=== PATIENT | male | born 1990 | race Caucasian/White ===

== ENCOUNTER 2017-04-07 10:29 | Emergency (ER) | payer BC ==
--- NOTE | 2017-04-07 11:17 | UC ---
Complaint Male HPI - HPI Summary HPI Summary: 27 y/o male presents to the urgent care c/o lower back pain, blood in his urine with frequency and hesitancy on urination since yesterday. Pt states blood in the urine has resolved. However he still feel mild mid and lower back pain, pain 3/10 w/o any radiation. Pt had nausea yesterday which resolve today. He has good appetite today. Pt denies abdominal pain, fever, SOB, chest pain, Hx of STD, penile discharge or penile pain. Pt has not taking anything to alleviate symptoms. - History of Current Complaint Chief Complaint: UCGU Stated Complaint: URINARY COMPLAINT Time Seen by Provider: 04/07/17 10:56 Hx Obtained From: Patient Onset/Duration: Gradual Onset, Lasting Days - 1 day, Still Present Timing: Constant, Lasting Days - 1 day Severity Initially: Moderate Severity Currently: Mild Pain Intensity: 3 Pain Scale Used: 0-10 Numeric Location: Flank - RT side Character: Constant Pressure Aggravating Factor(s): Voiding - frequency and hesistancy on urination Alleviating Factor(s): Nothing Associated Signs And Symptoms: Positive: Back Pain - mild on RT side, Hematuria , Appetite, Nausea - yesterday which resolved today. Negative: Fever, Blood in Stool, Rectal Pain, Vomiting(# Of Episodes =), Penile Swelling, Penile Discharge Prior STD Hx: no - Risk Factors Testicular Torsion: Negative - Allergies/Home Medications Allergies/Adverse Reactions: Allergies Allergy/AdvReac Type Severity Reaction Status Date / Time No Known Allergies Allergy Verified 04/07/17 10:54 PMH/Surg Hx/FS Hx/Imm Hx Previously Healthy: Yes Neurological History: Migraine - Surgical History Surgical History: None - Family History Known Family History: Positive: Hypertension, Diabetes - Social History Occupation: Employed Full-time Lives: With Family Alcohol Use: Occasionally Substance Use Type: Cocaine Substance Use Comment - Amount & Last Used: monthly- but not in several months. Smoking Status (MU): Light Every Day Tobacco Smoker Type: Cigarettes, eCigarettes Amount Used/How Often: occasional cigarette, daily e- cig. Review of Systems Constitutional: Negative Skin: Negative Eyes: Negative ENT: Negative Respiratory: Negative Cardiovascular: Negative Gastrointestinal: Nausea - yesterday Genitourinary: Dysuria, Hematuria, Frequency Motor: Negative Neurovascular: Negative Musculoskeletal: Other: - mid and lower back pain Neurological: Negative Psychological: Negative All Other Systems Reviewed And Are Negative: Yes Physical Exam Triage Information Reviewed: Yes Appearance: Well-Appearing, No Pain Distress, Well-Nourished, Obese Vital Signs: Initial Vital Signs Temp 98.8 F 04/07/17 10:55 Pulse 88 04/07/17 10:55 Resp 16 04/07/17 10:55 BP 132/105 04/07/17 10:55 Pulse Ox 98 04/07/17 10:55 Vital Signs Reviewed: Yes Eye Exam: Normal Eyes: Positive: Conjunctiva Clear - PERRLA, EOMI ENT Exam: Normal ENT: Positive: Normal ENT inspection, Hearing grossly normal, Pharynx normal, TMs normal Dental Exam: Normal Neck exam: Normal Respiratory Exam: Normal Respiratory: Positive: Chest non-tender, Lungs clear, Normal breath sounds, No respiratory distress Cardiovascular Exam: Normal Cardiovascular: Positive: RRR, No Murmur, Pulses Normal, Brisk Capillary Refill Abdominal Exam: Normal Abdomen Description: Positive: Nontender, No Organomegaly, Soft, CVA Tenderness (R). Negative: CVA Tenderness (L) Bowel Sounds: Positive: Present Musculoskeletal Exam: Normal Musculoskeletal: Positive: Strength Intact, ROM Intact, No Edema Neurological Exam: Normal Psychological Exam: Normal Skin Exam: Normal Complaint Male Course/Dx - Course Course Of Treatment: 27 y/o male presents to the urgent care c/o lower back pain , blood in his urine with frequency and hesitancy on urination since yesterday. Pt states blood in the urine has resolved. However he still feel mild mid and lower back pain, pain 3/10 w/o any radiation. Pt had nausea yesterday which resolve today. He has good appetite today. Pt denies abdominal pain, fever, SOB , chest pain, Hx of STD, penile discharge or penile pain. Pt has not taking anything to alleviate symptoms.Hx obtainedPE abnormal findings: Positive RT CVA tenderness. UA ordered: negative. Urine sent for culture. Abdominal CT w/o contrast ordered. Impression: Possible tiny submillimiter calculus in the RT uterer at the uterovesical junction. No hydronephrosis is seen.Also hepatic Steatosis observed. Spondylolysis at L5, and Spondylithiasis at level L5-S1. Pt Rx Flomax PO and Toradol 10mg PO to alleviate symptoms and help passage of stone. Pt advised to increase fluid intake and if pain increases despite taking medication to go to the ER for further treatment. F/u with Urologist in 2 days. Pt's BP elevated Today advised to decrease salt in his diet and monitor BP and if it continues to be elevated to f/u with his PCP for further management. Pt understood and agreed - Differential Dx/Diagnosis Differential Diagnosis/HQI/PQRI: Prostatitis, Pyelonephritis, Ureteral Calculi, Urinary Tract Infection Provider Diagnoses: 1-Renal calculus. 2-Elevated BP w/o Hx of HTN - Physician Notifications Discussed Patient Care With: Robin Olivera - DR Olivera agreed with Pt care and treatment Discharge - Discharge Plan Condition: Stable Disposition: HOME Prescriptions: Ketorolac TAB * [Toradol TAB *] 10 mg PO TID #9 tab Tamsulosin CAP* [Flomax CAP*] 0.4 mg PO DAILY #7 cap Patient Education Materials: Low Sodium Diet (ED), Kidney Stones (ED) Forms: *Work Release Referrals: Alfredo Freitas DO [Primary Care Provider] - 3 Days Gatito Avila MD [Medical Doctor] - 2 Days Additional Instructions: 1-Please take medications as directed to alleviate pain and help you pass the stone. 2-Please Increase fluid intake to help pass the urine 3- Please f/u Urologist or your PCP in 2-3 days if not improvement of symptoms for further evaluation and treatment. 4- Your BP today is elevated, please decrease salt in your diet, monitor your BP , if it continues to be elevated please f/y with your PCP for further management.
--- NOTE | 2017-04-07 11:50 | RAD ---
INDICATION: Right costovertebral tenderness with hematuria evaluate for kidney stone. COMPARISON: There are no prior studies available for comparison. TECHNIQUE: A CT scan of the abdomen and pelvis was performed without intravenous or oral contrast. Contiguous axial sections were obtained from the lung bases through the symphysis pubis. Images were reconstructed in the coronal and sagittal planes. FINDINGS: The lung bases are clear. No pleural effusion is present. The liver is normal in size and decreased in attenuation consistent with fatty infiltration. No significant focal abnormality is seen. No calcific gallstones are present. The spleen is mildly enlarged. The pancreas appears to be within normal limits. The adrenal glands and kidneys are normal in size. No renal calculi or hydronephrosis is seen. There is a tiny punctate submillimeter area of increased density in the distal right ureter at the ureterovesical junction suspicious for a tiny calculus. The aorta is normal in caliber without significant calcific plaque. No significant enlarged retroperitoneal lymph nodes are seen. The stomach, small and large bowel appear nondistended. The appendix is within normal limits. There is mild sigmoid diverticulosis. There is no evidence for diverticulitis or colitis. There is a small periumbilical hernia containing fat. No free intraperitoneal air or fluid is seen. There is bilateral spondylolysis at the L5 level. There is minimal approximately 3 mm of grade 1 anterior spondylolisthesis at the L5-S1 level. IMPRESSION: 1. POSSIBLE TINY SUBMILLIMETER CALCULUS IN THE RIGHT URETER AT THE URETEROVESICAL JUNCTION. NO HYDRONEPHROSIS IS SEEN. 2. HEPATIC STEATOSIS. 3. MILD SPLENOMEGALY. 4. BILATERAL SPONDYLOLYSIS AT THE L5 LEVEL AND VERY MILD GRADE 1 ANTERIOR SPONDYLOLISTHESIS AT THE L5-S1 LEVEL.
[2017-04-07 12:11] VITALS: BP 138/84
== END 2017-04-07 12:25 | disposition home or self-care (01) ==
LOC: UCCORT 10:29
DX: N20.0 Calculus of kidney (principal); R03.0 Elevated blood-pressure reading, without diagnosis of hypertension; E66.9 Obesity, unspecified; F17.210 Nicotine dependence, cigarettes, uncomplicated
CPT/HCPCS: 74176; 81003; 87086; 99212; G0463

== ENCOUNTER 2017-10-21 09:52 | Emergency (ER) | payer BC ==
[2017-10-21 10:35] VITALS: BP 141/86
--- NOTE | 2017-10-21 10:54 | UC ---
Skin Complaint HPI - HPI Summary HPI Summary: 27 year old male with penile complaint. PT C/O OF LUMP ON HIS PENIS, STATES THERE IS A VEIN THAT IS RED NEAR THE LUMP. FIRST NOTICED 4 DAYS AGO . WHEN HE WALKS IRRITATION IS WORSE. NO PROBLEMS URINATING. No fever. no discharge. had unprotected sex 4 days ago and the lesion / bump showed up 24 hours later. lump non tender but causes friction while walking which has caused some discomfort. no [ End ] - History of Current Complaint Chief Complaint: UCSkin Time Seen by Provider: 10/21/17 10:46 Stated Complaint: PERSONAL (DISCOMFORT) Hx Obtained From: Patient Onset/Duration: Sudden Onset Skin Exposure Onset/Duration: Days Ago - 3 Timing: Constant Pain Intensity: 3 - Allergy/Home Medications Allergies/Adverse Reactions: Allergies Allergy/AdvReac Type Severity Reaction Status Date / Time No Known Allergies Allergy Verified 10/21/17 10:27 Review of Systems Skin: Other - penile bump Is Patient Immunocompromised?: No All Other Systems Reviewed And Are Negative: Yes PMH/Surg Hx/FS Hx/Imm Hx Previously Healthy: Yes - Surgical History Surgical History: None - Family History Known Family History: Positive: Hypertension, Diabetes - Social History Occupation: Employed Full-time Alcohol Use: Daily Substance Use Type: Cocaine Substance Use Comment - Amount & Last Used: LAST USED A MONTH AGO Smoking Status (MU): Light Every Day Tobacco Smoker Type: Cigarettes, eCigarettes Amount Used/How Often: occasional cigarette, daily e- cig. Physical Exam Triage Information Reviewed: Yes Appearance: Well-Appearing, No Pain Distress, Well-Nourished Vital Signs: Initial Vital Signs Temp 99.3 F 10/21/17 10:28 Pulse 96 10/21/17 10:28 Resp 18 10/21/17 10:28 BP 141/86 10/21/17 10:28 Pulse Ox 97 10/21/17 10:28 Vital Signs Reviewed: Yes ENT Exam: Normal Respiratory Exam: Normal Cardiovascular Exam: Normal Male Genital Exam: Positive: Normal Genitalia, No Hernia, Lesions - left lateral shaft non tender raised lesion, rubbery. no ulcer. no drainage. no streaking. no erythema.. Negative: Urethral Discharge Musculoskeletal Exam: Normal Neurological Exam: Normal Psychological Exam: Normal Skin Exam: Normal Course/Dx - Course Course Of Treatment: based on unprotected sex and 24 hours with raised palpable lesion will treat for HPV. He does not think he had HPV vaccinations. He will f/ u with Uro whom he will see in a few days for vasectomy. he was advised to have full STD panel and will f/u with PCP for this in a couple weeks. advised safe sexual practices. - Diagnoses Provider Diagnoses: Genital wart Discharge - Sign-Out/Discharge Documenting (check all that apply): Discharge - Discharge Plan Condition: Good Disposition: HOME Prescriptions: Imiquimod 1 each TP SEE INSTRUCTIONS #1 cream.pack Patient Education Materials: Genital Warts (ED) Referrals: Alfredo Freitas DO [Primary Care Provider] - 7 Days Additional Instructions: Please follow up with your Urologist and PCP for further evaluation and potential lab testing - Billing Disposition and Condition Condition: GOOD Disposition: HOME
== END 2017-10-21 11:27 | disposition home or self-care (01) ==
LOC: UCCORT 09:52
DX: A63.0 Anogenital (venereal) warts (principal); F17.210 Nicotine dependence, cigarettes, uncomplicated
CPT/HCPCS: 99212; G0463

== ENCOUNTER 2019-05-23 07:04 | Emergency (ER) | payer SELFPAY ==
[2019-05-23 07:20] VITALS: BP 156/93
--- NOTE | 2019-05-23 07:32 | UC ---
Lower Extremity/Ankle HPI - HPI Summary HPI Summary: left foot pain x 2 days pain is 3 out of 10 , worse with walking, better with rest, woke up 2 days ago with left heel pain and redness, redness has gone this morning , but still having pain , no know injury no fever, no chills - History of Current Complaint Chief Complaint: UCLowerExtremity Stated Complaint: BILATERAL FOOT COMPLAINT Time Seen by Provider: 05/23/19 07:13 Hx Obtained From: Patient Onset/Duration: Gradual Onset, Lasting Days - 2, Still Present Severity Initially: Moderate Severity Currently: Moderate Pain Intensity: 3 Aggravating Factor(s): Standing, Ambulation Able to Bear Weight: Yes - Allergies/Home Medications Allergies/Adverse Reactions: Allergies Allergy/AdvReac Type Severity Reaction Status Date / Time No Known Allergies Allergy Verified 05/23/19 07:14 PMH/Surg Hx/FS Hx/Imm Hx - Additional Past Medical History Additional PMH: elevated liver enzyme - Surgical History Surgical History: None - Family History Known Family History: Positive: Hypertension, Diabetes - Social History Alcohol Use: 4-5 beers "after work" Substance Use Type: None Substance Use Comment - Amount & Last Used: LAST USED A MONTH AGO Smoking Status (MU): Light Every Day Tobacco Smoker Type: Smokeless Tobacco Amount Used/How Often: One can chew daily Length of Time of Smoking/Using Tobacco: Various Types Since Age 15 Review of Systems All Other Systems Reviewed And Are Negative: Yes Is Patient Immunocompromised?: No Physical Exam Triage Information Reviewed: Yes Appearance: Well-Appearing, No Pain Distress, Obese Vital Signs: Initial Vital Signs Temp 98.5 F 05/23/19 07:12 Pulse 76 05/23/19 07:12 Resp 18 05/23/19 07:12 BP 156/93 05/23/19 07:12 Pulse Ox 99 05/23/19 07:12 Vital Signs Reviewed: Yes Eye Exam: Normal ENT: Positive: Normal ENT inspection, Hearing grossly normal, Pharynx normal Neck: Positive: Supple, Nontender, No Lymphadenopathy Respiratory: Positive: Chest non-tender, Lungs clear, Normal breath sounds Cardiovascular: Positive: RRR, No Murmur, Pulses Normal Musculoskeletal: Positive: Other: - left foot : no swelling, no erythema noted , tenderness of the heel and plantar foot Lower Extremity Course/Dx - Course Course Of Treatment: elevated bp : pt. will monitor his bp daily, follow up with his pcp in one week - Differential Dx/Diagnosis Provider Diagnosis: Plantar fasciitis of left foot, Dermatitis, Elevated BP without diagnosis of hypertension Discharge ED - Sign-Out/Discharge Documenting (check all that apply): Patient Departure All imaging exams completed and their final reports reviewed: No Studies - Discharge Plan Condition: Stable Disposition: HOME Prescriptions: Naproxen [Naproxen 500 mg tab] 500 mg PO BID #20 tablet Patient Education Materials: Contact Dermatitis (ED), Plantar Fasciitis (ED) Forms: *Work Release Referrals: No Primary Care Phys,NOPCP [Primary Care Provider] - 7 Days - Billing Disposition and Condition Condition: STABLE Disposition: Home
== END 2019-05-23 07:32 | disposition home or self-care (01) ==
LOC: UCCORT 07:04
DX: M72.2 Plantar fascial fibromatosis (principal); R03.0 Elevated blood-pressure reading, without diagnosis of hypertension; L30.9 Dermatitis, unspecified; F17.290 Nicotine dependence, other tobacco product, uncomplicated
CPT/HCPCS: 99212; G0463